=== PATIENT | male | born 1985 | race Two or more races ===

== ENCOUNTER 2018-10-02 21:29 | Emergency (ER) | payer MEDICAID ==
[~2018-10-02] VITALS: Ht 172.7 cm; Wt 92.5 kg
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
[2018-10-02] MEDS ORDERED: IBUPROFEN 600 MG TABLET PO ONE ×2 (22:27→22:30)
[2018-10-02] MEDS ORDERED: ACETAMINOPHEN ES 500 MG TABLET ONE (22:28)
[2018-10-02] MEDS ORDERED: ACETAMINOPHEN ES 500 MG TABLET PO ONE (22:30)
--- NOTE | 2018-10-02 22:30 | NUR ---
Pt appears comfortable.
[2018-10-02 22:36] VITALS: BP 138/77
== END 2018-10-02 22:38 | disposition home or self-care (01) ==
LOC: ER 21:31
DX: M79.605 Pain in left leg (principal); M79.604 Pain in right leg; M79.602 Pain in left arm; M79.601 Pain in right arm; J45.909 Unspecified asthma, uncomplicated; F41.9 Anxiety disorder, unspecified; Z60.2 Problems related to living alone; Z88.8 Allergy status to other drugs, medicaments and biological substances; V44.5XXA Car driver injured in collision with heavy transport vehicle or bus in traffic accident, initial encounter; Y93.89 Activity, other specified; Y92.410 Unspecified street and highway as the place of occurrence of the external cause; Y99.8 Other external cause status
CPT/HCPCS: 99283; A4606; Z7610